=== PATIENT | male | born 1930 | race Caucasian/White ===

== ENCOUNTER 2016-03-16 01:56 | Emergency (ER) | payer OTHER ==
--- NOTE | 2016-03-16 02:01 | EDPHY ---
HPI/HX/ROS/PE/MDM Narrative: Chief complaint: Rectal bleeding HPI: 85-year-old male on Coumadin went to the bathroom to urinate this morning. Patient passed some gas at that time. He wiped with toilet paper and noted bright red blood on the toilet paper. When he looked in the toilet water it was read with blood. There were no clots. Has not had any further bleeding. Denies any abdominal pain. No nausea or vomiting. No fevers or chills. No dark black bowel movements. Patient states he has had no further bleeding. Patient states that he is not had any blood in his underwear. Has not had any melena. Has had normal brown stools. ROS: 10 point Review of Systems is negative except as noted in the HPI. Physical exam: Gen: Awake, Alert, No Distress HEENT: Nose: no rhinorrhea Eyes: PERRLA, EOMI Mouth: Moist mucosa Neck: Supple, no JVD Chest: nontender, lungs clear to auscultation Heart: S1, S2 normal, no murmur Abd: Soft, non-tender, no guarding Rectal: There is some scant dried blood rectal area. He has a fissure which is not currently bleeding. There are no hemorrhoids noted. There is brown stool in his underwear. Back: no CVA tenderness, no midline tenderness Ext: no edema, non-tender Skin: no rash Neuro: CN II-XII intact, Sensation grossly intact, Strength 5/5 in bilateral upper and lower extremities ED Course: 85-year-old male on warfarin for atrial fibrillation with an episode of bright red blood per rectum. He has not had any further rectal bleeding. He has brown stool in his underwear. H&H right now of 13.8 and 40. INR is 2.7. Plan will be to observe him for any further bleeding. If he has no further bleeding will be discharged follow up with GI as an outpatient. 0320 patient has been observed in the emergency department. He has had no further bleeding whatsoever. His hemodynamics are normal. His H&H are normal. His INR is up at 2.7 and therapeutic. He does have a fissure in his rectal area she is a likely source of bleeding. He has not had any further bleeding here. It appears to be self limited. Plan will be to discharge to home with follow-up with his primary care physician referral for follow-up with a band leader. He has been instructed to return to the emergency department should he have further bleeding, lightheadedness, or any other concerns. Patient is in agreement with this plan and will follow up as instructed. - Data Points Laboratory Results: Laboratory Results 03/16/16 01:50 03/16/16 01:50 03/16/16 01:50 WBC 6.02 10^3/uL (3.80-9.50) RBC 3.97 L 10^6/uL (4.40-6.38) Hgb 13.8 g/dL (13.7-17.5) Hct 40.0 % (40.0-51.0) MCV 100.8 H fL (81.5-99.8) MCH 34.8 H pg (27.9-34.1) MCHC 34.5 g/dL (32.4-36.7) RDW 14.7 % (11.5-15.2) Plt Count 162 10^3/uL (150-400) MPV 9.6 fL (8.7-11.7) Neut % (Auto) 48.5 % (39.3-74.2) Lymph % (Auto) 33.4 % (15.0-45.0) Amelia % (Auto) 9.6 % (4.5-13.0) Eos % (Auto) 7.3 % (0.6-7.6) Baso % (Auto) 1.0 % (0.3-1.7) Nucleat RBC Rel Count 0.0 % (0.0-0.2) Absolute Neuts (auto) 2.92 10^3/uL (1.70-6.50) Absolute Lymphs (auto) 2.01 10^3/uL (1.00-3.00) Absolute Monos (auto) 0.58 10^3/uL (0.30-0.80) Absolute Eos (auto) 0.44 H 10^3/uL (0.03-0.40) Absolute Basos (auto) 0.06 10^3/uL (0.02-0.10) Absolute Nucleated RBC 0.00 10^3/uL (0-0.01) Immature Gran % 0.2 % (0.0-1.1) Immature Gran # 0.01 10^3/uL (0.00-0.10) PT 29.0 H SEC (12.0-15.0) INR 2.70 H (0.83-1.16) APTT 40.0 H SEC (23.0-38.0) Sodium 144 mEq/L (134-144) Potassium 3.9 mEq/L (3.5-5.2) Chloride 105 mEq/L (97-110) Carbon Dioxide 28 mEq/l (22-31) Anion Gap 11 mEq/L (8-16) BUN 34 H mg/dL (7-23) Creatinine 0.9 mg/dL (0.7-1.3) Estimated GFR > 60 Glucose 114 H mg/dL (70-100) Calcium 8.9 mg/dL (8.5-10.4) General Initial Vital Signs: Initial Vital Signs Temperature (C) 36.5 C 03/16/16 01:56 Heart Rate 87 03/16/16 01:56 Respiratory Rate 16 03/16/16 01:56 Blood Pressure 158/90 H 03/16/16 01:56 O2 Sat (%) 96 03/16/16 01:56 O2 Delivery Mode Room Air Allergies/Adverse Reactions: No Known Allergies Allergy (Verified 11/14/15 10:00) Home Medications: Medication Instructions Recorded Acetaminophen [Tylenol ES 500 mg 500 mg PO DAILY PRN 06/05/12 (*)] Allopurinol [Allopurinol 300 MG 300 mg PO DAILY 06/05/12 (RX)] Cholecalciferol Vit D3 [Vitamin D3 2,000 units PO DAILY 06/05/12 2000 units] Ezetimibe [Zetia 10 MG (*)] 10 mg PO DAILY 06/05/12 Lisinopril [Zestril 40 mg (*)] 40 mg PO DAILY 06/05/12 Multivitamins [Multivitamin (*)] 1 each PO DAILY 06/05/12 Warfarin Sodium [Coumadin 5MG (*)] 6 mg PO DAILY16 12/28/13 Levothyroxine [Synthroid 75 mcg 75 mcg PO DAILY06 11/21/14 (*)] Metoprolol Tartrate [Lopressor 100 50 mg PO BID 11/21/14 mg (*)] Albuterol [Proventil Inhaler HFA 1 - 2 puffs IH Q4H PRN 11/14/15 (*)] Ipratropium 0.03% Nasal [Atrovent 2 sprays EACHNARE DAILY 11/14/15 0.03% Nasal (*)] Benzonatate [Tessalon Pearles] 100 mg PO TID PRN #0 cap 11/18/15 Furosemide [Lasix 20 MG (*)] 20 mg PO BID #60 tab 11/18/15 amLODIPine BESYLATE [Norvasc 2.5 2.5 mg PO DAILY #30 tab 11/18/15 mg (*)] guaiFENesin [Mucinex 600 MG (*)] 1,200 mg PO BID #30 tab.er 11/18/15 Departure - Departure Disposition: Home, Routine, Self-Care Clinical Impression: Lower GI bleeding Condition: Good Instructions: Rectal Bleeding (ED) Additional Instructions: If you have multiple episodes of passing blood per rectum please return to the emergency department for further evaluation. Also return for increasing lightheadedness, chest pain, shortness of breath, weakness, or any other concerns. Follow up with your primary care physician in 1-2 days for re-evaluation. Follow up with Gastroenterology to arrange for a colonoscopy. Referrals: Surendra Delgado MD [Primary Care Provider] - As per Instructions Tushar Campos MD, FACG [Medical Doctor] - As per Instructions
[2016-03-16 02:07] LABS: % IMMATURE GRANULYOCYTES 0.2 % (0.0-1.1); ABSOLUTE IMMATURE GRANULOCYTES 0.01 10^3/uL (0.00-0.10); ADD DIFF? NO; ADD MORPH? NO; ADD SCAN? NO; ATYPICAL LYMPHOCYTE FLAG 0 (0-99); FRAGMENT RBC FLAG 0 (0-99); HEMOGLOBIN 13.8 g/dL (13.7-17.5); LEFT SHIFT FLG 0 (0-99); LIPEMIA HEMOLYSIS FLAG 90 (0-99); MEAN CELL HEMOGLOBIN 34.8 pg (27.9-34.1); MEAN CELL HEMOGLOBIN CONCENTR. 34.5 g/dL (32.4-36.7); MEAN CELL VOLUME 100.8 fL (81.5-99.8); MEAN PLATELET VOLUME 9.6 fL (8.7-11.7); PLATELET CLUMPS FLAG 0 (0-99); PLATELET COUNT 162 10^3/uL (150-400); RED BLOOD CELL COUNT 3.97 10^6/uL (4.40-6.38); RED CELL DISTRIBUTION WIDTH 14.7 % (11.5-15.2)
[2016-03-16 02:17] LABS: INR 2.7 (0.83-1.16)
[2016-03-16 02:23] VITALS: RESP 16; TEMP 97.7
[2016-03-16 02:23] LABS: CALCIUM 8.9 mg/dL (8.5-10.4); CARBON DIOXIDE 28 mEq/l (22-31); CHLORIDE 105 mEq/L (97-110); CREATININE 0.9 mg/dL (0.7-1.3); GLOMERULAR FILTRATION RATE > 60; GLUCOSE 114 mg/dL (70-100); SODIUM 144 mEq/L (134-144)
[2016-03-16 02:33] LABS: ANION GAP 11 mEq/L (8-16); POTASSIUM 3.9 mEq/L (3.5-5.2)
[2016-03-16 03:35] VITALS: BP 138/79; PULSE 73; O2SAT 93
== END 2016-03-16 03:47 | disposition home or self-care (01) ==
LOC: EDUNIT#
DX: K92.2 Gastrointestinal hemorrhage, unspecified (principal); Z79.01 Long term (current) use of anticoagulants

== ENCOUNTER 2017-07-13 09:09 | Observation (INO) | payer OTHER ==
[2017-07-13] MEDS ORDERED: IOPAMIDOL (ISOVUE 370) 100 ML BTL IV ONE (09:13)
[2017-07-13 09:22] LABS: PLATELET COUNT 212 10^3/uL (150-400)
--- NOTE | 2017-07-13 09:24 | EDPHY ---
H & P Time Seen by Provider: 07/13/17 09:18 HPI/ROS: CHIEF COMPLAINT: Left-sided weakness, facial droop HISTORY OF PRESENT ILLNESS: 86-year-old male with atrial fibrillation on Coumadin presents with left-sided weakness and facial droop. He went to sleep at 2130 last evening feeling normal. When he awoke this morning, he had a left sided facial droop, slurred speech and difficulty ambulating because of left left weakness. He did not fall, but needed to hold onto the wall to walk. Difficulty holding a cup with left hand. No prior history of CVA. No headache and no recent head/neck trauma. REVIEW OF SYSTEMS: complete 10 point ROS negative except at noted in the HPI - Personal History Tetanus Vaccine Date: greater than 10 years - Medical/Surgical History Hx Asthma: No Hx Chronic Respiratory Disease: No Hx Diabetes: No Hx Cardiac Disease: Yes Hx Renal Disease: No Hx Alcoholism: No Hx HIV/AIDS: No Hx Splenectomy or Spleen Trauma: No Other PMH: gout, sick sinus syndrome,HTN, AFIB, PACEMAKER. CHF, hypothyroid, mitral valve prolapse - Social History Smoking Status: Never smoked Alcohol Use: Sober - Physical Exam Exam: General Appearance: Alert, pleasant, slurred speech Eyes: Pupils equal and round, no conjunctival pallor or injection ENT, Mouth: Mucous membranes moist Neck: Normal inspection Respiratory: Lungs are clear to auscultation Cardiovascular: Regular rate and rhythm Gastrointestinal: Abdomen is soft and nontender Neurological: A&O, slurred speech, left-sided facial droop, left [employer] weakness , LLE motor 5/5 Skin: Warm and dry Extremities: Nontender, no pedal edema Psychiatric: Mood and affect normal Constitutional: Initial Vital Signs Temperature (C) 36.6 C 07/13/17 09:09 Heart Rate 78 07/13/17 09:09 Respiratory Rate 18 07/13/17 09:09 Blood Pressure 161/63 H 07/13/17 09:09 O2 Sat (%) 91 L 07/13/17 09:09 O2 Delivery Mode Room Air O2 (L/minute) 2 Allergies/Adverse Reactions: No Known Allergies Allergy (Verified 11/14/15 10:00) Home Medications: Medication Instructions Recorded Allopurinol [Allopurinol 300 MG 300 mg PO DAILY 06/05/12 (RX)] Multivitamins [Multivitamin (*)] 1 each PO DAILY 06/05/12 Warfarin Sodium [Coumadin 5MG (*)] 5 mg PO SUMOTUTHFRSA@12/28/13 Levothyroxine [Synthroid 75 mcg 75 mcg PO DAILY06 11/21/14 (*)] Furosemide [Lasix 20 MG (*)] 20 - 60 mg PO DAILY 07/13/17 Herbals/Supplements -Info Only 1 ea PO DAILY 07/13/17 Lisinopril [Zestril 10 mg (*)] 10 mg PO DAILY 07/13/17 Metoprolol Tartrate [Lopressor 50 50 mg PO BID 07/13/17 mg (*)] Duck-3 Fatty Acids [Fish Oil 1000 1,000 mg PO DAILY 07/13/17 mg (*)] Warfarin Sodium [Coumadin 2.5MG 2.5 mg PO WE@07/13/17 (*)] amLODIPine BESYLATE [Norvasc 5 mg 5 mg PO DAILY 07/13/17 (*)] Aspirin EC [Aspirin EC 81 mg (*)] 81 mg PO DAILY #30 tab 07/14/17 Atorvastatin Calcium 40 mg PO DAILY #30 tablet 07/14/17 predniSONE 60 mg PO DAILY #20 tab 07/14/17 Medical Decision Making - Diagnostics EKG Interpretation: EKG interpreted by me: V-paced rhythm, rate 70. Interpretation: abnormal EKG Imaging Results: CT head: NAD CTA head/neck: carotid calcifications, no thrombus Imaging: Discussed imaging studies w/ call taker Radiologist ED Course/Re-evaluation: This patient presents as a stroke alert with left-sided weakness and slurred speech. Last known normal 9:30 p.m. yesterday, approximately 12 hr ago. No an IV tpa candidate, given timeframe and on Coumadin Possible IA tpa candidate; CT /CTA of the head and neck ordered. 9:20 a.m.-CT scan of the head read by Dr. Gurwinder Lubin is unremarkable. CT angiogram in process now. 9:40 a.m.-INR 2.1. CTA head/neck: carotid calcification present, no thrombus. Not an IA tPA candidate. NIH stroke score 5. Neuro exam unchanged. 10am: The hospitalist service was consulted for admission. Serial neuro exams unchanged. Differential Diagnosis: Altered mental status including but not limited to hypoglycemia, infectious process, electrolyte abnormality, head injury, CVA, and intoxicants. - Data Points Laboratory Results: Laboratory Results 07/13/17 09:18 07/13/17 09:18 Medications Given: Discontinued Medications Allopurinol (Allopurinol) 300 mg PO DAILY DEREK Stop: 01/10/18 08:59 Last Admin: 07/14/17 08:45 Dose: 300 mg Amlodipine Besylate (Norvasc) 5 mg PO DAILY DEREK Stop: 01/10/18 14:44 Last Admin: 07/14/17 14:46 Dose: 5 mg Aspirin Buffered (Aspirin Ec) 81 mg PO DAILY DEREK Stop: 01/09/18 15:59 Last Admin: 07/14/17 13:15 Dose: 81 mg Sodium Chloride (Ns) 500 mls @ 1,500 mls/hr IV ONCE ONE Stop: 07/13/17 11:41 Last Admin: 07/13/17 13:47 Dose: 500 mls Levothyroxine Sodium (Synthroid) 75 mcg PO DAILY06 DEREK Stop: 01/10/18 05:59 Last Admin: 07/14/17 05:52 Dose: 75 mcg Lisinopril (Zestril) 10 mg PO DAILY DEREK Stop: 01/10/18 08:59 Last Admin: 07/14/17 08:44 Dose: 10 mg Metoprolol Tartrate (Lopressor) 50 mg PO BID DEREK Stop: 01/09/18 20:59 Last Admin: 07/14/17 08:45 Dose: 50 mg Multivitamins (Tab-A-Pippa) 1 each PO DAILY DEREK Stop: 01/10/18 08:59 Last Admin: 07/14/17 08:45 Dose: 1 each [id number] Ethyl Esters (Fish Oil) 1,000 mg PO DAILY DEREK Stop: 01/10/18 08:59 Last Admin: 07/14/17 08:44 Dose: 1,000 mg Prednisone (Prednisone) 60 mg PO ONCE ONE Stop: 07/14/17 14:37 Last Admin: 07/14/17 14:45 Dose: 60 mg Warfarin Sodium (Coumadin) 5 mg PO SuMoTuThFrSa@1600 DEREK Stop: 01/09/18 15:59 Last Admin: 07/13/17 16:45 Dose: 5 mg Point of Care Test Results: Chemistry 07/13/17 09:16 POC Sodium 138 mEq/L mEq/L (135-145) POC Potassium 4.0 mEq/L mEq/L (3.3-5.0) POC Chloride 99 mEq/L mEq/L (97-110) POC BUN 32 mg/dL H mg/dL (7-23) POC Creatinine 0.9 mg/dL mg/dL (0.7-1.3) POC Glucose 128 mg/dL H mg/dL (70-100) ISTAT H&H 07/13/17 09:16 POC Hgb 12.6 gm/dL L gm/dL (13.7-17.5) POC Hct 37 % L % (40-51) Departure - Departure Disposition: [facility] Inpatient Acute Clinical Impression: Acute ischemic stroke Condition: Fair
[2017-07-13 09:31] LABS: INR 2.11 (0.83-1.16); PROTIME(PATIENT) 23.7 SEC (12.0-15.0)
--- NOTE | 2017-07-13 09:38 | CPEKG ---
Heart Rate: 70 RR Interval: 857 P-R Interval: 468 QRSD Interval: 26 QT Interval: 447 QTC Interval: 483 P [place]: 0 QRS [place]: 0 T Wave [place]: 53 EKG Severity - ABNORMAL ECG - EKG Impression: VENTRICULAR-PACED RHYTHM Electronically Signed By: Marcela Cummins 13-Jul-2017 13:37:18
[2017-07-13] MEDS ORDERED: NS 500 ML IV ONE (11:22)
[2017-07-13] MEDS ORDERED: ACETAMINOPHEN 325 MG TAB PO PRN (11:22)
[2017-07-13] MEDS ORDERED: ONDANSETRON 4 MG/2 ML VIAL IVP PRN (11:22)
[2017-07-13] MEDS ORDERED: ONDANSETRON DISINTEGRATING 4 MG TAB PO PRN (11:22)
--- NOTE | 2017-07-13 11:41 | ASMTCMCOM ---
CM Note CM Note Notes: Patient presents to ER via EMS for "stroke alert" after patient woke up this morning with slurred speech, L facial droop, and L sided weakness. Patient is alert, oriented X 3 when we meet. He lives alone in a 2 story home in [place], but states that he lives "on one level". He is still driving and has a son and daughter in law that live close by. I have contacted patient's son Gildardo (personal cell) who arrived to the ER shortly after my call. I have discussed paln for continued observation of patient overnight and assessment by PT/OT/ST. I explained potential recommendation for SNF stay prior to patient returning home as well. Patient and Gildardo aware that CM will continue to follow patient's progress upstairs and will be involved in discharge planning. Date Signed: 07/13/2017 11:40 AM Electronically Signed By:Prema Morrissey RN
--- NOTE | 2017-07-13 14:32 | GHP ---
[f rep st] HISTORY AND PHYSICAL DATE OF ADMISSION: 07/13/2017 CHIEF COMPLAINT: Facial droop. HISTORY OF PRESENT ILLNESS: This is an 86-year-old male, with a known history of atrial fibrillation, on anticoagulation with a pacemaker, who reports the evening prior to presentation having some difficulty completing his normal evening tasks related to going to bed such as putting on his pajamas and finishing brushing his teeth. He did not think anything specifically of it and went to sleep. When the patient woke, he noted in the mirror as he was attempting to brush his teeth that there was a distinct dissymmetry on his face. Therefore, called for emergency response and assistance. On the medical floor, patient is denying any current or preceding chest pain, denying any palpitations, denying any lightheadedness. Notes the asymmetry in the movement of his face, but denies any sensation of imbalance, dysphagia. Denies any numbness, weakness, paresthesia, or pain. The patient denies any changes in his bowel habits. Denies urinary retention. Denies dysuria. Denies hematuria. Denies blood in his stools. Reports that he has been medication compliant and reports no difficulty preceding this episode with completing his activities of daily living. PAST MEDICAL HISTORY: 1. Sick sinus syndrome status post BiV pacemaker. 2. Chronic systolic heart failure. 3. Valvular heart disease/severe mitral regurgitation. 4. Atrial fibrillation, on anticoagulation and rate control medications. 5. Hypertension. 6. Gout. 7. History of diverticulosis. 8. Hypothyroidism. 9. Dyslipidemia. 10. History of cataracts. SOCIAL HISTORY: Negative for tobacco. Patient drinks 2 gin martinis a night. Denies any illicit drugs or marijuana. ADVANCE DIRECTIVES: The patient is do not resuscitate. His son would be his medical decision maker. FAMILY HISTORY: Positive for heart disease. REVIEW OF SYSTEMS: A 10-point review of systems is negative with the exception of that reported in the HPI. PHYSICAL EXAMINATION: VITAL SIGNS: Blood pressure 173/89, heart rate 76, respiratory rate 18, saturating 95% on room air, 36.4. GENERAL: This is a very pleasant elderly male sitting up in bed. HEENT: Notable for dry mucous membranes. Eye exam is negative for any icterus. CARDIAC: Patient is regular. Has a 3/6 systolic murmur. PULMONARY: Clear to auscultation bilaterally. GASTROINTESTINAL: Positive bowel sounds. ABDOMEN: Soft and nontender. MUSCULOSKELETAL: Negative for any lower extremity edema. SKIN: Notable for scattered bruising and 2 wounds of the left lower extremity, 1 on the adams and 1 on the knee, that are in various stages of healing. NEUROLOGIC: The patient is alert and oriented x3. He has noted facial droop on the left side of his face including his lip and upper face. The rest of his cranial nerves are intact. Strength is intact 5/5 bilaterally of the upper and lower extremities. Sensation is intact throughout. Gait is normal. DATA: Noncontrast CT of the head, which I personally reviewed and interpreted, shows no acute bleeds or strokes. Radiology does query the presence of a thrombus in the right middle cerebral artery. CTA of the head and neck show plaque of the bilateral carotid bulbs less than 50 %. No evidence of dissection. CTA shows right carotid bifurcation with some stenosis estimated at 30%. CT of the head does not show complete occlusion or thrombus in the cerebrovascular system. LABORATORY: White count 6.0, hematocrit 36.1, platelets of 212. INR 2.11. Creatinine 0.9. Troponin less than 0.012. ASSESSMENT AND PLAN: This is an 86-year-old male presenting with left facial droop. 1. Acute cerebrovascular accident. Symptoms are consistent with acute stroke. Initial imaging is negative with the exception of some lower grade stenoses. Will admit the patient for neurologic observation on telemetry monitoring. We cannot order MRI of the brain 2/2 pacemaker. Will order a transthoracic echocardiogram with bubble. Patient will be continued on his warfarin anticoagulation. The discussion related to additional antiplatelets can be initiated with Neurology and his outpatient cardiology team. Blood pressure currently ranging in the 130s to 170s. Will continue to monitor on his home medications. Will check lipids and hemoglobin A1c in the morning. I have ordered Physical Therapy, Occupational Therapy, and Speech Therapy to clear for aspiration as patient does describe some abnormal sensation with swallowing. 2. Atrial fibrillation. Patient is currently rate controlled on his home medications. Will continue his Coumadin. Will continue telemetry monitoring and his metoprolol. It is noted he believes he is due for pacemaker interrogation. Will contact Cardiology. Last echo performed was 2015 in our system. Will repeat this today. 3. Hypertension. Currently adequately controlled as above. Will continue home medications and monitor. 4. Gout. Will continue his outpatient home medications. He has no acute symptoms. 5. Prophylaxis. Patient is on full-dose anticoagulation. 6. Diet. Once cleared by Speech Therapy. 7. Disposition. I expect in less than 2 midnights as long as the patient's neurologic symptoms do not evolve and appropriate consultative services involvement is obtainable. I have discussed the case with the emergency room physician. Patient will be triaged to [address] [place] [address] for monitoring. /[id number]/MODL MTDD
--- NOTE | 2017-07-13 15:08 | ECHO ---
[email or web address] [address] [address] Main: [phone] Fax: Transthoracic Echocardiogram Name: ALYSSA MCGEE MR#: [id number] Study Date: 07/13/2017 Study Time: 01:49 PM Date of : 1930 Age: 86 year(s) Height: 177.8 cm (70 in.) Weight: 72.12 kg (159 lb.) BSA: 1.89 m2 Gender: Male Examination: Echo with Agitated Saline Indication: Cerebrovascular: prior CVA, hx CAD/b-v pacer Image Quality: Contrast: Requested by: Tracy Blackmon BP: 173 mmHg/89 mmHg Heart Rate: Rhythm: Indication: Cerebrovascular: prior CVA, hx CAD/b-v pacer Procedure Staff Nurses Educator: Amee Carbajal RDCS Reading Physician: Vin Royal MD Requesting Provider: Conclusions: Normal size left ventricle. The ejection fraction is estimated to be 60-65 %. No regional wall motion abnormality. There is a pacemaker lead noted in the right ventricle. The left atrium is severely dilated. An agitated saline study was performed and was negative for intracardiac shunting. The right atrium is severely dilated. Mild mitral annular calcification. Moderate to severe mitral regurgitation. Moderate aortic cusp calcification is present. No aortic valve stenosis is present. Moderate to severe tricuspid valve regurgitation. RVSP is 58mmHG.. No pericardial effusion. Compared to 11/16/2015, the degree of mitral regurgitation has increased significantly. Measurements: Chambers Valvular Assessment AV/MV Valvular Assessment TV/PV Normal Normal Normal Name Value Range Name Value Range Name Value Range IVSd (2D): 1.0 cm (0.6 cm-1.1 AV Vmax: 1.54 m/s (1 m/s-1.7 TR Vmax: 3.45 mm/s ( - ) cm) m/s) TR PGmax: 48 mmHg ( - ) LVDd (2D): 5.5 cm (4.2 cm-5.9 AV meanP mmHg ( - ) syst. PAP: 58 mmHg ( - ) cm) NATALIE (VTI): 1.8 cm ( - ) LVDs (2D): 3.8 cm (2.1 cm-4 MV E Vmax: 1.20 m/s ( - ) cm) MV meanP mmHg ( - ) LVPWd (2D): 0.9 cm (0.6 cm-1 MVA (Vmax): 2.8 m/s ( - ) cm) LVOTd 2.1 cm 2.1 cm mm LVEF (MOD4): 63 % (>=55 %) Patient: ALYSSA MCGEE Study Date: 07/13/2017 Page 1 of 2 01:49 PM EF Range: 60-65 % Continued Measurements: Chambers Valvular Assessment AV/MV Valvular Assessment TV/PV Name Value Name Value Name Value LADs: 8.6 cm MV Annulus: 3.5 cm CVP (est.): 10 mmHg LADs Lon.5 cm MV VTI: 18.40 cm LA Area: 63.8 cm2 MR Vena Contracta: 0.3 cm LA Volume: 361 ml MR ERO: 0.250 cm2 LA Volume Index: 191.0 ml/m2 MR PISA radius: 9 mm MR Reg. Volume: 45 ml MR Reg. Fraction: 25 % Additional Vessels Name Value Inferior Vena Cava: 3.3 cm Findings: Left Ventricle: Normal size left ventricle. No LV hypertrophy. Normal global systolic LV function. The ejection fraction is estimated to be 60-65 %. No regional wall motion abnormality. Normal diastolic LV function. Right Ventricle: Normal size right ventricle. There is a pacemaker lead noted in the right ventricle. Left Atrium: The left atrium is severely dilated. An agitated saline study was performed and was negative for intracardiac shunting. Right Atrium: The right atrium is severely dilated. Mitral Valve: Mild mitral annular calcification. Moderate to severe mitral regurgitation. Aortic Valve: Moderate aortic cusp calcification is present. The aortic valve is tri-leaflet. No aortic valve stenosis is present. Tricuspid Valve: The tricuspid valve is normal in appearance and function. Moderate to severe tricuspid valve regurgitation. The pulmonary artery pressure is mildly increased. RVSP is 58mmHG.. Pulmonic Valve: The pulmonic valve is normal in appearance and function. Trivial pulmonic valve regurgitation. Aorta: The aorta is normal. Pericardium: No pericardial effusion. (No Signature Object) Patient: ALYSSA MCGEE Study Date: 07/13/2017 Page 2 of 2 01:49 PM [id number]
[2017-07-13] MEDS ORDERED: WARFARIN SODIUM 5 MG TAB PO SCH (16:00)
[2017-07-13] MEDS: ASPIRIN EC 81 MG TAB PO SCH (16:45)
[2017-07-13] MEDS: METOPROLOL TARTRATE 50 MG TAB PO SCH (20:30)
[2017-07-14 04:57] LABS: PLATELET COUNT 187 10^3/uL (150-400)
[2017-07-14] MEDS ORDERED: LEVOTHYROXINE 75 MCG TAB PO SCH (06:00)
--- NOTE | 2017-07-14 08:26 | NEUROPROG ---
Assessment: HOSPITAL NEUROLOGY CONSULT REQUESTING: Tracy Blackmon MD REASON: facial weakness HPI: 86 year old right-handed man with a history of HTN, HLD, SSS s/p PPM, afib on warfarin who presented to our ED yesterday with new onset facial weakness. Patient states he went to bed in his usual state of health on Mon, . On 07/13 AM he woke up and looked in the mirror in his bathroom and noted drooping of the left side of his face with concomitant slurring of his speech. He had also noted difficulty closing his left eye all the way. He denied any extremity weakness, sensory loss, visual disturbance, language disturbance, gait change, STERN, fever. He presented to our ED for evaluation. He was assessed for a stroke with CT head wo showing not acute findings, but global volume loss and white matter signal attenuation. CTA head/neck showed mild atherosclerotic changed of the carotid bulbs, distal vertebral arteries and intracranial vessels without any hemodynamically significant stenoses. He was not a tPA candidate due to being out of the window, and he was not an intervention candidate due to lack of LVO. He was admitted for further evaluation. He denies prior history of stroke/TIA. ROS: As per the HPI, otherwise a complete 12 point ROS was performed and is negative ALLERGIES AND MEDS: As recorded in the EMR - reviewed and reconciled PFSH: As per the intake H&P by Dr. Blackmon from yesterday EXAM: VS reviewed in EMR GEN: WDWN laying in NAD HEENT: NCAT, sclera anicteric, conjunctiva not injected, MMM, oropharynx clear, no scalp tenderness NECK: supple, nontender, no meningismus CV: RRR s1 s2 wo m/r/c/g. Carotid pulses 2+ wo bruit NEURO: MS: awake, alert, oriented to all spheres. Speech with flaccid dysarthria. No language disturbance. Follows commands. Attends to both sides. Recent/remote memory grossly intact. Mood euthymic. Good fund of knowledge. CN: pupils 3mm round and reactive. Unable to visualize fundi. VFF. Primary gaze centered. Full ocular motility. Facial sensation preserved. Left lower face with droop not corrected with activation, also weakness with eye closure, but brow raising preserved. Hearing grossly intact to finger rub. Palatoglossal movements intact. Shoulder shrug and head turn strong. MOTOR: normal bulk/tone. No adventitial movements. Full power throughout. SENSORY: intact/symmetric LT/PP in the extremities. No extinction. COORD: no ataxia FN/HS. Jovanny preserved. REFLEX: great toes striatal. No clonus. DTRS 2/4 in BUES, absent BLE DTRs. GAIT: deferred to PT safety eval DATA REVIEW: Labs reviewed in EMR LDL 94 A1c pending INR 2.11 TTE - EF 60-65%, no mass/shunt, severely dilated atria, [id number] mitral regurg PERSONALLY INTERPRETED RESULTS AND DATA: CT head wo and CTA head/neck as per the HPI IMPRESSION AND RECOMMENDATIONS: // ACUTE LEFT FACIAL WEAKNESS Patient with new/abrupt onset left facial weakness. Challenging situation as he does have some upper face involvement with weakness in eye closure. Differential includes focal cortical embolization to the right hemisphere motor regions vs. Chairez's palsy. Unable to get MRI due to PPM. Given his vascular risk factors, would favor treating as a stroke, but would also have him start prednisone 60mg daily x 5 days followed by 5 day taper in the event this was Chairez's palsy, as well. Continue warfarin. Will need close INR monitoring as outpatient to ensure he does not become subtherapeutic. Would add ASA 81mg for additional antithrombotic given his symptoms occurring with therapeutic INR at presentation. Add statin for goal LDL < 70. A1c goal < 6.5. Goal normotension - should have long-term goal of at least < 130/80. ARMATURE WINDER REPAIR eval. PT/OT consults. Stroke education. Follow up PCP within a week. Follow up with cardiology within a week. Follow up neurology 4 weeks. Will sign off. Recall PRN. Objective: Vital Signs Temp Pulse Resp BP Pulse Ox 36.4 C 70 14 158/87 H 97 07/14/17 07:06 07/14/17 07:06 07/14/17 07:06 07/14/17 07:06 07/14/17 07:06 Laboratory Results 07/14/17 04:15 07/14/17 04:15 07/13/17 07/14/17 07/15/17 05:59 05:59 05:59 Intake Total 1100 Balance 1100 PT 23.7 SEC (12.0-15.0) H 07/13/17 09:18 INR 2.11 (0.83-1.16) H 07/13/17 09:18 Allergies/Adverse Reactions: No Known Allergies Allergy (Verified 11/14/15 10:00)
[2017-07-14] MEDS: METOPROLOL TARTRATE 50 MG TAB PO SCH (08:45)
[2017-07-14] MEDS ORDERED: MULTIVITAMINS 1 EACH TAB PO SCH (09:00)
[2017-07-14] MEDS ORDERED: ALLOPURINOL 300 MG TAB PO SCH (09:00)
[2017-07-14] MEDS ORDERED: Herbals/Supplements -Info Only PO SCH (09:00)
[2017-07-14] MEDS ORDERED: OMEGA-3 FATTY ACIDS 1,000 MG CAP PO SCH (09:00)
[2017-07-14] MEDS ORDERED: LISINOPRIL 10 MG TAB PO SCH (09:00)
--- NOTE | 2017-07-14 10:46 | WOCRNPDOC ---
WON Advanced Assessment Note - Skin Integrity Problem, Advanced Assess Left Anterior Calf Scab Dressing Type: Open to Air Integumentary Issue Intervention: Dressing Applied, Hydrogel Applied Randi Wound Tissue: Intact Wound Bed Color: Brown Wound Bed Constitution: Scab Wound Edges: Well Defined Site Measurement - Head-to-Toe Length X Width X Depth (cm): 5.2x4.3xscab Skin Integrity Problem Comment: Dry, scabbed wound present on admission. Patient states that he's had this wound for some time and applies "some cream" to it but that it does not work. Area cleaned with NS and gauze, hydrogel applied to wound bed, skin prep to randi wound skin, and wound covered with an allevyn. Wound care does not need to follow this wound. Left Knee Scab Dressing Type: Open to Air Integumentary Issue Intervention: Dressing Applied, Hydrogel Applied Wound Bed Color: Brown Wound Bed Constitution: Scab Wound Edges: Well Defined Site Measurement - Head-to-Toe Length X Width X Depth (cm): 1.2x1.4xscab Skin Integrity Problem Comment: Dry, scabbed wound present on admission. Area cleaned with NS and gauze, hydrogel applied to wound bed, skin prep to rnadi wound skin, and wound covered with an allevyn. Wound care will not follow this wound. Right Anterior Calf Scab Dressing Type: Open to Air Integumentary Issue Intervention: Dressing Applied, Hydrogel Applied Randi Wound Tissue: Intact Wound Bed Color: Brown Wound Bed Constitution: Scab Wound Edges: Well Defined Site Measurement - Head-to-Toe Length X Width X Depth (cm): 1.9x1.3xscab Skin Integrity Problem Comment: Dry, scabbed wound present on admission. Area cleaned with NS and gauze, hydrogel applied to wound bed, skin prep to randi wound skin, and wound covered with an allevyn. Wound care will not follow this wound.
--- NOTE | 2017-07-14 10:48 | ASMTCMCOM ---
CM Note CM Note Notes: Patient admitted for acute CVA. He has a history of A-fib and pacemaker. Patient lives alone and has a supportive son, Gildardo, nearby. His daughter is flying in Monday to stay with him for a while. I spoke with his DIL Yeni, and they feel that they can support him at home. I have ordered home PT/OT/ASSOCIATE DEAN through [facility] upon discharge - both patient and family agree to this, as well. Case Management discharge plan: home with [facility] PT/OT/ASSOCIATE DEAN Date Signed: 07/14/2017 10:47 AM Electronically Signed By:Lindsay Rajput RN
[2017-07-14 11:36] VITALS: BP 145/76
[2017-07-14] MEDS: ASPIRIN EC 81 MG TAB PO SCH (13:15)
[2017-07-14] MEDS ORDERED: predniSONE 20 MG TAB PO ONE (14:36)
[2017-07-14] MEDS ORDERED: amLODIPine BESYLATE 5 MG TAB PO SCH (14:45)
--- NOTE | 2017-07-14 15:23 | PDIAF ---
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 Code Status: Full Code - Medication Management Discharge Medications: Medications to Continue on Transfer Allopurinol [Allopurinol 300 MG (RX)] 300 mg PO DAILY 06/05/12 [Last Taken 07/13] Multivitamins [Multivitamin (*)] 1 each PO DAILY 06/05/12 [Last Taken 07/12/17] Warfarin Sodium [Coumadin 5MG (*)] 5 mg PO SUMOTUTHFRSA@12/28/13 [Last Taken 07/11/17] Levothyroxine [Synthroid 75 mcg (*)] 75 mcg PO DAILY06 11/21/14 [Last Taken ] Furosemide [Lasix 20 MG (*)] 20 - 60 mg PO DAILY 07/13/17 [Last Taken 07/13/17 20mg] Herbals/Supplements -Info Only 1 ea PO DAILY 07/13/17 [Last Taken Unknown] Lisinopril [Zestril 10 mg (*)] 10 mg PO DAILY 07/13/17 [Last Taken 07/13/17] Metoprolol Tartrate [Lopressor 50 mg (*)] 50 mg PO BID 07/13/17 [Last Taken ] [place]-3 Fatty Acids [Fish Oil 1000 mg (*)] 1,000 mg PO DAILY 07/13/17 [Last Taken 07/12/17] Warfarin Sodium [Coumadin 2.5MG (*)] 2.5 mg PO WE@21 07/13/17 [Last Taken ] amLODIPine BESYLATE [Norvasc 5 mg (*)] 5 mg PO DAILY 07/13/17 [Last Taken ] Aspirin EC [Aspirin EC 81 mg (*)] 81 mg PO DAILY #30 tab 07/14/17 [Last Taken Unknown] Atorvastatin Calcium 40 mg PO DAILY #30 tablet 07/14/17 [Last Taken Unknown] predniSONE 60 mg PO DAILY #20 tab 07/14/17 [Last Taken Unknown] Discharge Medications: Refer to the Discharge Home Medication list for PRN reason. - Orders Services needed: Home Care, Registered Nurse, Physical Therapy, Occupational Therapy, Speech Language Pathologist Home Care Face to Face: I certify that this patient was under my care and that I had the required [id number] encounter meeting the encounter requirements on the discharge day. My findings support the fact that the patient is homebound as defined in Home Care Face to Face Continued: CMS Chapter 7 Medicare Benefits Manual 30.1.1 , The condition of the patient is such that there exists a normal inability to leave home and consequently, leaving home would require a considerable and taxing effort. Diet Recommendation: sodium restricted Diet Texture: Regular Texture Diet, Thin Liquids, Meds Whole in Puree Additional Instructions: Follow up with Dr. Mitul Herrera, Neurologist. Follow up with your primary care physician to recheck your blood pressure in 5- 7 days. Goal is <130/80. Start the Atorvastatin to lower your cholesterol and reduce stroke risk. Daily Aspirin 81 mg daily in addition to Coumadin. Continue INR monitoring as you have been doing. - Follow Up Care Current Providers and Referrals: Surendra Delgado MD [Primary Care Provider] - David Taylor MD [Medical Doctor] - Patient,NotPresent [Unknown] - As per Instructions Mitul Herrera DO [Doctor of Osteopathy] -
--- NOTE | 2017-07-14 16:53 | GDS ---
[f rep st] DISCHARGE SUMMARY DISCHARGE DIAGNOSES: 1. 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 2. Atrial fibrillation. 3. Chronic anticoagulation with a therapeutic INR. 4. Hypertension. CONSULTANTS: Mitul Herrera DO, Neurology. HISTORY OF PRESENT ILLNESS: History of details, please see History and Physical dated July 13, 2017. In brief, the patient is an 86-year-old male with history of atrial fibrillation, hypertension, who is chronically anticoagulated, presents to the emergency department with acute facial asymmetry. He was admitted with presumed acute CVA. HOSPITAL COURSE: Patient admitted to the neurology unit. Stroke workup was initiated. Initial head CT showed no acute bleed or stroke. He underwent CT of the head and neck, which showed no hemodynam ically significant stenosis and no evidence of complete occlusion or thrombus in the cerebrovascular system. Neurology consult was obtained. It is noted he is therapeutic on his Coumadin with a INR of 2.11. Consideration was given to possible Chairez's palsy versus acute CVA. However, he could not und ergo an MRI due to his pacemaker. Therefore, Neurology recommended treating for both. From a CVA st andpoint, baby aspirin is added to his Coumadin. He should have close outpatient followup of his blo od pressure. His LDL was 92. He was started on atorvastatin on discharge. He will be continued on his Coumadin with outpatient INR monitoring as previously done. His goal blood pressure is less than 130/80. He may require up titration of his antihypertensives. Thus, I have recommended he have his blood pressure checked within 5 to 7 days at his Primary Care Physician's office. For the possibili ty of Chairez's palsy, he is started on prednisone 60 mg daily for 5-days and then will taper for the 5- following days for total of 10-days of treatment with taper. He was evaluated by the therapy team tyshawn hernandez and he is deemed safe for discharge home. Home health care services ordered. DISPOSITION: Patient is discharged home in stable condition with home health PT, OT, RN and Speech P athology. DISCHARGE MEDICATIONS: Please see [facility] for completed outpatient medication list. MEDICATIONS AT DISCHARGE: Include: 1. Aspirin 81 mg p.o. daily #30 no refills. 2. Prednisone 60 mg daily for 5-ays, then 50 mg per day, 40 mg per day, 30 mg per day, then 20 mg pe r day, 10 mg per day and off. 3. Atorvastatin 40 mg p.o. daily #30 no refills. 4. He will continue all other outpatient medications as previously prescribed. 5. Continue outpatient INR monitoring. FOLLOWUP: 1. Mitul Herrera DO, Neurology. 2. Surendra Delgado MD, Primary Care in 5 to 7 days for blood pressure recheck. /[id number]/MODL
[2017-07-19] MEDS ORDERED: WARFARIN SODIUM 2.5 MG TAB PO SCH (16:00)
== END 2017-07-14 16:45 | disposition home health service (06) ==
LOC: EDUNIT# → INTOOBSV 10:07 → F3N 11:17
PROVIDERS: ADMIT Hospitalist; ATTEND Hospitalist
DX: R29.810 Facial weakness (principal); I48.91 Unspecified atrial fibrillation; I11.0 Hypertensive heart disease with heart failure; E03.9 Hypothyroidism, unspecified; I34.0 Nonrheumatic mitral (valve) insufficiency; I50.22 Chronic systolic (congestive) heart failure; M10.9 Gout, unspecified; E78.5 Hyperlipidemia, unspecified; Z79.01 Long term (current) use of anticoagulants; Z95.0 Presence of cardiac pacemaker
CPT/HCPCS: 70450; 70496; 70498; 92523; 92526; 92610; 93005; 93306; 97110; 97116; 97161; 97166; 99285; G0378; G8978; G8979; G8987; G8988; G8989; G8996; G8997; G8999; G9158; G9186; J7512; Q9967; 82947-QW

== ENCOUNTER 2018-02-21 09:34 | Day surgery (SDC) | payer OTHER ==
[2018-02-21] MEDS ORDERED: diphenhydrAMINE 25 MG CAP PO ONE (09:41)
[2018-02-21] MEDS ORDERED: BACITRACIN IRRIGATION/NS 50,000 UNITS/1,000 ML BTL IRR ONE (09:41)
[2018-02-21] MEDS ORDERED: ceFAZolin 2 GM/DEXTROSE 100 ML IV ONE (09:41)
[2018-02-21] MEDS ORDERED: DIAZEPAM 5 MG TAB PO ONE (09:41)
[2018-02-21] MEDS ORDERED: NS 1,000 ML IV ONE (09:41)
[2018-02-21 10:13] LABS: PLATELET COUNT 150 10^3/uL (150-400)
[2018-02-21 10:24] LABS: INR 2.03 (0.83-1.16)
[2018-02-21] MEDS ORDERED: BUPIVACAINE 0.75% 10 ML SDV ONE (11:37)
[2018-02-21] MEDS ORDERED: LIDOCAINE 1% 300 MG/30 ML SDV ONE (11:37)
--- NOTE | 2018-02-21 11:44 | PDGENHP ---
History & Physical Chief Complaint: PPM WAGNER Pertinent Past, Social, Family History: History of atrial fibrillation, CHF, severe MR, and severe pulmonary HTN. PPM placed in 2016 now WAGNER Relevant Physical Exam: General: No apparent distress, A&Ox4. Respiratory: CTA. Cardiac: Regular rate and rhythm, paced Cardiorespiratory Assessment: Proceed with generator change as planned for today.
[2018-02-21] MEDS ORDERED: NALOXONE HCL 0.4 MG/ML INJ IVP PRN (11:48)
[2018-02-21] MEDS ORDERED: ONDANSETRON 4 MG/2 ML VIAL IVP PRN (11:48)
[2018-02-21] MEDS ORDERED: DEXAMETHASONE 4 MG/ML VIAL IVP PRN (11:48)
[2018-02-21] MEDS ORDERED: PHENYLEPHRINE HCL 100 MCG/ML SYR IVP PRN (11:48)
--- NOTE | 2018-02-21 11:48 | PDANEPAE ---
ANE History of Present Illness pacemaker generator exchange ANE Past Medical History - Cardiovascular History Hx Hypertension: No Hx Arrhythmias: Yes Hx Chest Pain: No Hx Coronary Artery / Peripheral Vascular Disease: No Hx CHF / Valvular Disease: No Hx Palpitations: Yes Cardiovascular History Comment: h/o A-fib, SSS - Pulmonary History Hx COPD: No Hx Asthma/Reactive Airway Disease: No Hx Recent Upper Respiratory Infection: No Hx Oxygen in Use at Home: No Hx Sleep Apnea: No - Endocrine History Hx Diabetes: No Hypothyroid: Yes Hyperthyroid: No Obesity: no - Renal History Hx Renal Disorders: No - Neurological & Psychiatric Hx Hx Neurological and Psychiatric Disorders: No - Chronic Pain History Chronic Pain: No ANE Review of Systems Review of systems is: negative Review of Systems: - Exercise capacity Exercise capacity: >=4 METS ANE Patient History - Allergies Allergies/Adverse Reactions: No Known Allergies Allergy (Verified 11/14/15 10:00) - Home Medications Home medications: home medication list seen and reviewed Home Medications: Allopurinol [Allopurinol 300 MG (RX)] 300 mg PO DAILY 06/05/12 [Last Taken 02/20 08:00] Multivitamins [Multivitamin (*)] 1 each PO DAILY 06/05/12 [Last Taken 02/20/18 08:00] Warfarin Sodium [Coumadin 5MG (*)] 5 mg PO DAILY@21 12/28/13 [Last Taken 21:00] Levothyroxine [Synthroid 75 mcg (*)] 75 mcg PO DAILY06 11/21/14 [Last Taken 10/01 08:00] Furosemide [Lasix 20 MG (*)] 40 mg PO DAILY 07/13/17 [Last Taken 02/20/18 08:00] Herbals/Supplements -Info Only 1 ea PO DAILY 07/13/17 [Last Taken 02/20/18 08:00 ] Metoprolol Tartrate [Lopressor 50 mg (*)] 50 mg PO DAILY18 07/13/17 [Last Taken 02/20/18 21:00] [place]-3 Fatty Acids [Fish Oil 1000 mg (*)] 1,000 mg PO DAILY 07/13/17 [Last Taken 02/20/18 08:00] Albuterol [Proventil Inhaler HFA (*)] 2 puffs IH Q4H PRN 02/16/18 [Last Taken 08:00] Ipratropium 0.06% Nasal [Atrovent 0.06% Nasal (RX)] 2 sprays EACHNARE TID [Last Taken 02/20/18 08:00] Lisinopril [Zestril 5 mg (*)] 5 mg PO DAILY 02/16/18 [Last Taken 02/20/18 10:00] Metoprolol Tartrate [Lopressor 50 mg (*)] 25 mg PO DAILY@02/16/18 [Last Taken 02/20/18 08:00] - NPO status NPO Status: no food or drink >8 hours - Anes Hx Anes Hx: no prior problems - Smoking Hx Smoking Status: Never smoked ANE Labs/Vital Signs - Labs Result Diagrams: 02/21/18 10:05 02/21/18 10:05 - Vital Signs Height: 177.8 cm Weight: 71.214 kg ANE Physical Exam - Airway Neck exam: FROM Mallampati Score: Class 2 Mouth exam: normal dental/mouth exam - Pulmonary Pulmonary: no respiratory distress - Cardiovascular Cardiovascular: regular rate and rhythym - ASA Status ASA Status: II ANE Anesthesia Plan Anesthesia Plan: GA with mask
[2018-02-21] MEDS ORDERED: PROPOFOL 200 MG/20 ML VIAL ONE (12:35)
[2018-02-21] MEDS ORDERED: PHENYLEPHRINE HCL 100 MCG/ML SYR ONE (12:44)
--- NOTE | 2018-02-21 13:17 | POSTANESTH ---
Post Anesthetic Evaluation Cardiovascular Status: Normal, Stable Respiratory Status: Normal, Stable Level of Consciousness/Mental Status: Can Participate in Eval Pain Control: Adequate, Prn Tx Ordered Nausea/Vomiting Control: Adequate, Prn Tx Ordered Complications Possibly Related to Anesthesia: None Noted
--- NOTE | 2018-02-21 13:25 | EPPROC ---
Electrophysiology Procedure Note: PROCEDURE PERFORMED: 1. AV Pacemaker generator change INDICATION: Pacemaker generator at WAGNER LV lead thresholds are elevated discussed new CS lead, lead coater or accepting high thresholds, patient does not want additional procedures. Patient has complete AV block PROCEDURE NOTE: Patient presented to the cardiac catheterization laboratory in a fasting, postabsorptive state. Anesthesiologist administered sedation. The L infraclavicular area was prepped and draped in the usual sterile fashion. Lidocaine plus bupivacaine was used for local anesthesia. Using a combination of blunt and sharp dissection and electrocautery, the dissection was carried down to the prepectoral fascia and the existing pacemaker pocket was opened. The pacemaker generator was disconnected from the leads and the lead thresholds and impedance were checked. The pacemaker pocket was copiously irrigated with antibiotic solution. The pocket was again inspected for any bleeding. The leads were attached to the pacemaker securely. The pacemaker was inserted into the pocket and secured in place with a nonabsorbable suture. The pacemaker pocket was closed in 3 layers with absorbable monocryl sutures and [place]. Appropriate dressing was applied. The patient left the cardiac catheterization laboratory in stable condition. Serial Numbers: 1. Device Medtronic [id number] system is MRI compliant 2. Atrial Lead - plug 3. Ventricular Lead - 4076-58 [id number] 06/04/2012 4. Coronary sinus Lead 4296-88 [id number] Stimulation Thresholds & Impedance Measurements: 1. Ventricular Lead 399 ohm 0.75 V 0.4 ms 2. Coronary sinus Lead 361 ohm 5 V 1.5 ms Dayo Pacing Parameters 1. Pacing mode VVIR 2. Lower rate 70 ppm 3. Upper tracking rate 110 ppm 4. Upper sensor rate 110 ppm Patient Problems: Problems Problem Status Onset Atrial fibrillation and flutter Active Acute ischemic stroke Acute Respiratory distress Acute Shortness of breath Acute Sick sinus syndrome Acute
--- NOTE | 2018-02-22 14:32 | CPEKG ---
Test Reason : OPEN Blood Pressure : / mmHG Vent. Rate : 082 BPM Atrial Rate : 000 BPM P-R Int : 202 ms QRS Dur : 133 ms QT Int : 428 ms P-R-T Axes : 022 -23 003 degrees QTc Int : 500 ms Ventricular-paced complexes PVC Confirmed by Garett Meadows ([id number]) on 02/22/2018 2:32:00 PM Referred By: Confirmed By:Garett Meadows
== END 2018-02-21 15:31 | disposition home or self-care (01) ==
LOC: FCATH 09:34
PROVIDERS: ATTEND Internal Medicine Cardiovascular Disease
DX: Z45.010 Encounter for checking and testing of cardiac pacemaker pulse generator [battery] (principal); I48.91 Unspecified atrial fibrillation; I27.20 Pulmonary hypertension, unspecified; I34.0 Nonrheumatic mitral (valve) insufficiency; I50.9 Heart failure, unspecified; I11.0 Hypertensive heart disease with heart failure; I25.10 Atherosclerotic heart disease of native coronary artery without angina pectoris
CPT/HCPCS: C2621; J0690; J2370; J2704

== ENCOUNTER → 2018-05-25 | Outpatient (CLI) | payer OTHER | LOC: EDSTATUS 15:55 → GIMAGING 16:52 | PROVIDERS: ATTEND Family Medicine | DX: R07.81 Pleurodynia (principal) | CPT/HCPCS: 71101-PO ==